=== PATIENT | male | born 1975 | race Two or more races ===

== ENCOUNTER 2020-04-06 12:28 | Emergency (ER) | payer OTHER ==
[~2020-04-06] VITALS: Ht 172.7 cm; Wt 77.1 kg
[2020-04-06 13:10] VITALS: BP 118/85
[2020-04-06] MEDS ORDERED: FLUORESCEIN SOD 1 MG TEST STRIP OP ONE (13:45)
[2020-04-06] MEDS ORDERED: TETRACAINE HCL 0.5% OPTH(EYE) SOLN 4ML EACHEYE ONE (13:45)
[2020-04-06] MEDS ORDERED: ACETAMINOPHEN 500 MG TAB PO ONE ×2 (14:05→14:15)
== END 2020-04-06 14:30 | disposition home or self-care (01) ==
LOC: ER 12:28
DX: S05.02XA Injury of conjunctiva and corneal abrasion without foreign body, left eye, initial encounter (principal); S00.12XA Contusion of left eyelid and periocular area, initial encounter; Z88.0 Allergy status to penicillin; Z88.1 Allergy status to other antibiotic agents; W22.8XXA Striking against or struck by other objects, initial encounter; Y93.89 Activity, other specified; Y92.89 Other specified places as the place of occurrence of the external cause; Y99.0 Civilian activity done for income or pay
CPT/HCPCS: 70486